=== PATIENT | female | born 1930 | race Caucasian/White ===

== ENCOUNTER 2017-01-22 16:37 | Emergency (ER) | payer MEDICARE ==
[2017-01-22] MEDS ORDERED: Sodium Chloride 0.9% 1,000 ML IV STA (16:51)
[2017-01-22] MEDS ORDERED: Sodium Chloride 0.9% 10 ML Syringe FLUSH PRN (16:51)
--- NOTE | 2017-01-22 18:01 | EDM.PDOC ---
ED HPI GENERAL MEDICAL PROBLEM - General Chief Complaint: Cardiovascular Problem Stated Complaint: [facility] Time Seen by Provider: 01/22/17 16:46 Source of Information: Reports: EMS, [facility] Records History Limitations: Reports: Altered Mental Status - History of Present Illness INITIAL COMMENTS - FREE TEXT/NARRATIVE: The patient presents from [facility] because of high blood sugar, low blood pressure and decreased responsiveness. The patient has dementia. She is normally alert and confused and will talk. She has not talked today and she is not responding like normal. She had no temp today. She has not been coughing. Her intake is down today. She did not fall. Onset: Gradual Duration: Hour(s): (Today) Severity: Moderate Improves with: Reports: None Worsens with: Reports: None Context: Reports: Activity (Bed rest) Associated Symptoms: Denies: Cough, Fever/Chills, Nausea/Vomiting - Related Data Allergies Allergy/AdvReac Type Severity Reaction Status Date / Time penicillin G Allergy Unknown Hives Verified 12/24/14 17:22 Home Meds: Home Meds Anastrozole [Arimidex] 1 mg PO DAILY 07/08/13 [History] Insulin Glargine,Hum.Rec.Anlog [Lantus Solostar] 14 units SQ QAM 07/08/13 [ History] Lisinopril [Prinivil] 2.5 mg PO DAILY 07/08/13 [History] Omeprazole [Prilosec] 20 mg PO Q2D 07/08/13 [History] Sertraline HCl [Zoloft] 100 mg PO DAILY 07/08/13 [History] ALPRAZolam [Alprazolam] 0.25 mg PO DAILY 06/03/14 [History] Insulin Aspart [Novolog Flexpen] 4 units SUBCUT BID 06/03/14 [History] metFORMIN [Glucophage] 500 mg PO DAILY 06/03/14 [History] ALPRAZolam [Alprazolam] 0.5 mg PO BEDTIME 12/16/14 [History] Acetaminophen 325 mg PO DAILY 12/16/14 [History] Calcium Carbonate/Vitamin D3 [Calcium 500-Vit D3 200 Tablet] 1 tab PO DAILY [History] Mag Hydrox/Al Hydrox/Simeth [Maalox Maximum Strength Susp] 2 tsp PO Q4H PRN [History] Aspirin [Halfprin] 81 mg PO BRK 01/22/17 [History] Insulin Aspart [Novolog] 6 unit SQ DAILY 01/22/17 [History] Levothyroxine Sodium [Synthroid] 25 mcg PO DAILY 01/22/17 [History] Liraglutide [Victoza] 0.6 mg SUBCUT BEDTIME 01/22/17 [History] metFORMIN [Glucophage] 250 mg PO DAILY 01/22/17 [History] traZODone 25 mg PO BEDTIME 01/22/17 [History] Past Medical History Other HEENT History: Has right hearing aide, glasses, upper dentures. Other Gastrointestinal History: nausea Other Genitourinary History: overactive bladder, frequency in urination - Past Surgical History Other Cardiovascular Surgeries/Procedures: pacemaker Other Oncologic Surgeries/Procedures: left breast mastectomy Social & Family History - Tobacco Use Smoking Status *Q: Never Smoker Second Hand Smoke Exposure: No - Alcohol Use Days Per Week of Alcohol Use: 0 - Recreational Drug Use Recreational Drug Use: No ED ROS GENERAL - Review of Systems Review Of Systems: Unable To Obtain ED EXAM, GENERAL - Physical Exam Exam: See Below Exam Limited By: Altered Mental Status General Appearance: Lethargic Ears: Normal External Exam Nose: Normal Inspection Head: Atraumatic, Normocephalic Neck: Normal Inspection Respiratory/Chest: No Respiratory Distress, Lungs Clear, Normal Breath Sounds Cardiovascular: No Edema, No Murmur, Tachycardia GI/Abdominal: Soft, Non-Tender, No Organomegaly, No Mass Extremities: Normal Inspection EKG INTERPRETATION EKG Date: 01/22/17 Time: 17:56 Rhythm: Other (Paced rythmn) Rate (Beats/Min): 98 Course - Vital Signs Last Recorded V/S: Last Vital Signs Temp 95.5 F 01/22/17 23:25 Pulse 111 H 01/22/17 23:25 Resp 24 H 01/22/17 23:25 BP 50/24 L 01/22/17 23:25 Pulse Ox 82 L 01/22/17 23:25 - Orders/Labs/Meds Labs: Laboratory Tests 01/22/17 01/22/17 01/22/17 Range/Units 18:04 18:25 18:25 WBC 24.01 H (3.98-10.04) K/mm3 RBC 3.46 L (3.98-5.22) M/mm3 Hgb 9.8 L (11.2-15.7) gm/L Hct 30.8 L (34.1-44.9) % MCV 89.0 (79.4-94.8) fl MCH 28.3 (25.6-32.2) pg MCHC 31.8 L (32.2-35.5) g/dl RDW Std Deviation 48.1 H (36.4-46.3) fL Plt Count 363 (182-369) K/mm3 MPV 10.4 (9.4-12.3) fl Neut % (Auto) 85.0 H (34.0-71.1) % Lymph % (Auto) 3.7 L (19.3-51.7) % [place] % (Auto) 6.6 (4.7-12.5) % Eos % (Auto) 0.6 L (0.7-5.8) Baso % (Auto) 0.1 (0.1-1.2) % Neut # (Auto) 20.40 H (1.56-6.13) K/mm3 Lymph # (Auto) 0.88 L (1.18-3.74) K/mm3 [place] # (Auto) 1.59 H (0.24-0.36) K/mm3 Eos # (Auto) 0.15 (0.04-0.36) K/mm3 Baso # (Auto) 0.02 (0.01-0.08) K/mm3 Manual Slide Review Abnormal smear Sodium 157 H (136-145) mEq/L Potassium 4.1 (3.5-5.1) mEq/L Chloride 119 H (98-107) mEq/L Carbon Dioxide 15 L (21-32) mEq/L Anion Gap 27.1 H (5-15) BUN 121 H (7-18) mg/dL Creatinine 3.6 H (0.55-1.02) mg/dL Est Cr Clr Drug Dosing TNP Estimated GFR (MDRD) 12 (>60) mL/min BUN/Creatinine Ratio 33.6 H (14-18) Glucose 114 (83-115) mg/dL POC Glucose 156 H (83-110) mg/dL Lactic Acid (0.4-2.0) mmol/L Calcium 9.9 (8.5-10.1) mg/dL Total Bilirubin 0.4 (0.2-1.0) mg/dL AST 60 H (15-37) U/L ALT 40 (14-59) U/L Alkaline Phosphatase 126 H (46-116) U/L Troponin I 0.063 H* (0.00-0.056) ng/mL Total Protein 7.2 (6.4-8.2) g/dl Albumin 2.8 L (3.4-5.0) g/dl Globulin 4.4 gm/dL Albumin/Globulin Ratio 0.6 L (1-2) Urine Color (Yellow) Urine Appearance (Clear) Urine pH (5.0-8.0) Ur Specific [place] (1.005-1.030) Urine Protein (Negative) Urine Glucose (UA) (Negative) Urine Ketones (Negative) Urine Occult Blood (Negative) Urine Nitrite (Negative) Urine Bilirubin (Negative) Urine Urobilinogen (0.2-1.0) Ur Leukocyte Esterase (Negative) Urine RBC (0-5) /hpf Urine WBC (0-5) /hpf Ur Epithelial Cells (0-5) /hpf Amorphous Sediment (NOT SEEN) /hpf Urine Bacteria (FEW) /hpf Urine Mucus (FEW) /hpf 01/22/17 01/22/17 Range/Units 19:30 20:31 WBC (3.98-10.04) K/mm3 RBC (3.98-5.22) M/mm3 Hgb (11.2-15.7) gm/L Hct (34.1-44.9) % MCV (79.4-94.8) fl MCH (25.6-32.2) pg MCHC (32.2-35.5) g/dl RDW Std Deviation (36.4-46.3) fL Plt Count (182-369) K/mm3 MPV (9.4-12.3) fl Neut % (Auto) (34.0-71.1) % Lymph % (Auto) (19.3-51.7) % [place] % (Auto) (4.7-12.5) % Eos % (Auto) (0.7-5.8) Baso % (Auto) (0.1-1.2) % Neut # (Auto) (1.56-6.13) K/mm3 Lymph # (Auto) (1.18-3.74) K/mm3 [place] # (Auto) (0.24-0.36) K/mm3 Eos # (Auto) (0.04-0.36) K/mm3 Baso # (Auto) (0.01-0.08) K/mm3 Manual Slide Review Sodium (136-145) mEq/L Potassium (3.5-5.1) mEq/L Chloride (98-107) mEq/L Carbon Dioxide (21-32) mEq/L Anion Gap (5-15) BUN (7-18) mg/dL Creatinine (0.55-1.02) mg/dL Est Cr Clr Drug Dosing Estimated GFR (MDRD) (>60) mL/min BUN/Creatinine Ratio (14-18) Glucose (83-115) mg/dL POC Glucose (83-110) mg/dL Lactic Acid 7.6 H (0.4-2.0) mmol/L Calcium (8.5-10.1) mg/dL Total Bilirubin (0.2-1.0) mg/dL AST (15-37) U/L ALT (14-59) U/L Alkaline Phosphatase (46-116) U/L Troponin I (0.00-0.056) ng/mL Total Protein (6.4-8.2) g/dl Albumin (3.4-5.0) g/dl Globulin gm/dL Albumin/Globulin Ratio (1-2) Urine Color Yellow (Yellow) Urine Appearance Clear (Clear) Urine pH 5.0 (5.0-8.0) Ur Specific [place] 1.020 (1.005-1.030) Urine Protein Negative (Negative) Urine Glucose (UA) Negative (Negative) Urine Ketones Trace H (Negative) Urine Occult Blood Negative (Negative) Urine Nitrite Negative (Negative) Urine Bilirubin 1+ H (Negative) Urine Urobilinogen 0.2 (0.2-1.0) Ur Leukocyte Esterase 1+ H (Negative) Urine RBC 0-5 (0-5) /hpf Urine WBC 0-5 (0-5) /hpf Ur Epithelial Cells Not seen (0-5) /hpf Amorphous Sediment Moderate H (NOT SEEN) /hpf Urine Bacteria Many H (FEW) /hpf Urine Mucus Not seen (FEW) /hpf Meds: Medications Discontinued Medications Generic Name Dose Route Start Last Admin Trade Name Freq PRN Reason Stop Dose Admin Hydromorphone HCl 0.25 mg 01/22/17 19:37 01/22/17 19:40 Dilaudid IVPUSH 01/22/17 19:38 0.25 mg ONETIME ONE Administration Sodium Chloride 1,000 mls @ 1,000 mls/hr 01/22/17 16:51 01/22/17 20:22 Normal Saline IV 01/22/17 17:50 Infused .BOLUS STA Infusion Sodium Chloride 500 mls @ 999 mls/hr 01/22/17 18:11 01/22/17 19:46 Normal Saline IV 01/22/17 18:41 Infused ONETIME ONE Infusion Sodium Chloride 500 mls @ 999 mls/hr 01/22/17 19:45 01/22/17 20:29 Normal Saline IV 125 mls/hr .BOLUS JEROME Administration Levofloxacin/Dextrose 750 mg/ 150 mls @ 100 mls/hr 01/22/17 20:04 01/22/17 20 :21 Premix IV 01/22/17 21:33 100 mls/hr ONETIME ONE Administration Metronidazole 500 mg/ Premix 100 mls @ 100 mls/hr 01/22/17 20:03 01/22/17 20: 20 IV 01/22/17 21:02 100 mls/hr ONETIME ONE Administration Metoclopramide HCl 10 mg 01/22/17 19:15 01/22/17 19:21 Reglan IVPUSH 01/22/17 19:16 10 mg ONETIME ONE Administration Morphine Sulfate 4 mg 01/22/17 20:47 01/22/17 20:57 Morphine IVPUSH 01/22/17 20:48 4 mg ONETIME ONE Administration Morphine Sulfate 4 mg 01/22/17 21:29 Morphine IVPUSH Q1H PRN Pain Ondansetron HCl 4 mg 01/22/17 18:42 01/22/17 18:46 Zofran IVPUSH 01/22/17 18:43 4 mg ONETIME ONE Administration Sodium Chloride 10 ml 01/22/17 16:51 01/22/17 17:12 Saline Flush FLUSH 10 ml ASDIRECTED PRN Administration Keep Vein Open - Re-Assessments/Exams Free Text/Narrative Re-Assessment/Exam: 01/22/17 18:08 I ordered an IV NS 500mL bolus, labs, UA, CT of her head, CXR and EKG. Her CT shows no evidence for acute transcortical infarct, acute hemorrhage, or mass effect. 01/22/17 19:41 Her CXR shows no infiltrates but it appears she has dilated bowel. I have ordered a CT of her abdomen with and without contrast. Her WBC was elevated at 24.01. Her Hgb is low at 9.8. Her platelets are normal. Her Na was elevated at 157. Her K was normal at 4.1. Her anion gap was elevated at 27.1. Her creatinine was elevated at 3.6. Her glucose was normal at 114. Her AST was elevated at 60. Her alk phos was elevated at 126. Her troponin was elevated at 0.063. She appears to be septic. I have ordered another fluid bolus to a total of 2Ls. I am waiting on her CT results. She appears to have a bowel obstruction. She has more pain so I ordered dilaudid 0.25mg IV. She vomited after coming back from CT so I ordered reglan 10mg IV. 01/22/17 21:[address] shows extracolonic gas possibly intravascular in location. Distribution suggests the air is related to several loops of small bowel in the left mid abdomen. Bowel ischemia should be considered. Small bowel ileus. Fecal impaction. Bibasilar infiltrates. Age-indeterminate compression fracture deformities of the T9, L3 and L4 vertebral bodies. Small periumbilical hernia. The patient has ischemic bowel. She is also in septic shock with renal failure. Her BP is better after 2L of fluid. I feel she is more complex a patient then what we can handle here. I talked with our hospitalist and she agreed. I talked with Kiera the patient's granddaughter and power of contracts attorney and she requested [facility]. I called [facility] in [place] and talked with Dr Fuentes the general surgeon bat person and he said the patient has a very low survival rate of 30 to 40% in optimal conditions and she is in renal failure and that makes it worse. She will without the surgery. He will not operate on her if she is a DNR. He wanted me to talk with the family. I talked with Kiera and she contacted Junior her son and they both agreed to make her comfort care only and not have the surgery. I have stopped the fluids and antibiotics. I gave her morphine for the pain and she is resting comfortably. We have a shortage of beds and I will keep her here in the hospital. 01/24/17 06:41 The patient at 0000 on 01/23/2017. Departure - Departure Time of Disposition: 00:00 Disposition: 20 Preliminary Cause of *Q: Sepsis & Multi System Organ Failure Condition: Critical Clinical Impression: Septic shock, Ischemic bowel disease, Non-STEMI (non-ST elevated myocardial infarction) Renal failure Qualifiers: Renal failure chronicity: acute Acute renal failure type: unspecified Qualified Code(s): N17.9 - Acute kidney failure, unspecified Referrals: PCP,None [Primary Care Provider] - Forms: ED Department Discharge
[2017-01-22] MEDS ORDERED: Sodium Chloride 0.9% 500 ML IV ONE (18:11)
[2017-01-22] MEDS ORDERED: Ondansetron 4 MG/2 ML SDV IVPUSH ONE (18:42)
[2017-01-22] MEDS ORDERED: Metoclopramide 10 MG/2 ML SDV IVPUSH ONE (19:15)
[2017-01-22] MEDS ORDERED: HYDROmorphone 0.5 MG/0.5 ML Syringe IVPUSH ONE (19:37)
[2017-01-22] MEDS ORDERED: Sodium Chloride 0.9% 500 ML IV SCH (19:45)
[2017-01-22] MEDS ORDERED: metroNIDAZOLE/Normal Saline 500 MG in Premix Bag 1 BAG IV ONE (20:03)
[2017-01-22] MEDS ORDERED: Levofloxacin/Dextrose 5%-Water 750 MG in Premix Bag 1 BAG IV ONE (20:04)
[2017-01-22] MEDS ORDERED: Morphine 4 MG/ML Syringe IVPUSH ONE (20:47)
[2017-01-22] MEDS ORDERED: Morphine 4 MG/ML Syringe IVPUSH PRN (21:29)
[2017-01-22 23:26] VITALS: BP 50/24
--- NOTE | 2017-01-27 11:27 | CT ---
Head CT Technique: Multiple axial sections through the brain were obtained. Intravenous contrast was not utilized. Comparison: Prior head CT exam of 12/16/14. Findings: Ventricles along with basal cisterns and sulci over the convexities are moderately enlarged. Minimal diminished density noted within the periventricular white matter compatible with small vessel ischemic demyelination change. Minimal basal ganglia calcification is noted. No other abnormal parenchymal densities are seen. Atherosclerotic calcifications seen within the carotid siphon and within the vertebral vessels. Bone window settings were reviewed which show no acute calvarial abnormality. Visualized sinuses are clear. Impression: 1. Senescent change as described above. Nothing acute is appreciated on noncontrast head CT exam. Diagnostic code #2 I agree with preliminary report issued by [facility] ([facility] report finalized on 01/22/17, 6:48 PM Central Time)
--- NOTE | 2017-01-27 11:27 | CR ---
Chest: Portable view of the chest was obtained. Comparison: Prior chest CT of 09/25/15. Heart size and mediastinum are within normal limits for portable technique. Portion of the left lung base not seen due to overlapping of pacemaker. Lungs otherwise are clear. Bony structures are osteopenic. Impression: 1. Portion of the left base not seen due to overlapping pacemaker. 2. Nothing acute is definitely seen on portable chest x-ray. Diagnostic code #2
--- NOTE | 2017-01-27 12:11 | CT ---
CT abdomen and pelvis Technique: Multiple axial sections were obtained from above the dome of the diaphragm inferiorly through the pubic symphysis. Intravenous and oral contrast not utilized which diminishes details of the exam. Comparison: Prior CT abdomen and pelvis exam of 12/16/14. Findings: Patchy increased density within both lung bases, worse on the left side. Uncertain if findings represent treatment of previous spiculated mass within the left lung base or represents superimposed pneumonia. Coronary artery calcification is seen. Mitral annulus calcification also noted. Liver shows no focal abnormality. Spleen appears within normal limits. Kidneys show no hydronephrosis. Adrenal glands show no nodule. There is questionable air within the superior mesenteric artery. There is some air next to small bowel loops within the left abdomen which appears to be extraluminal air. Incidental periumbilical hernia is noted. Aorta shows diffuse atherosclerotic change which includes the branch vessels. No aneurysm is seen. No retroperitoneal adenopathy or other mesenteric abnormalities are seen. Rectum is dilated with stool as well as increased stool within the sigmoid colon. Scattered diverticuli seen within the descending and sigmoid colon. No free fluid is seen. Bone window settings show compression deformities T9 as well as L3 and L4. These are all an interval change from previous CT exam. T9 compression deformity is similar to prior chest CT from 2016. Impression: 1. Extraluminal gas around several small bowel loops within the left abdomen. Small amount of vascular air suggested. Findings raise the possibility of bowel ischemia. 2. Diffuse vascular calcification within the aorta and branch vessels. 3. Mild fecal impaction. 4. Other incidental findings as noted above. Diagnostic code #5 I agree with preliminary report issued by [facility] ([facility] report finalized on 01/22/17, 8:59 PM Central Time)
== END 2017-01-23 01:10 | disposition expired ==
LOC: JD.ED 16:37
DX: A41.9 Sepsis, unspecified organism (principal); N17.9 Acute kidney failure, unspecified; R65.21 Severe sepsis with septic shock; I21.4 Non-ST elevation (NSTEMI) myocardial infarction; K55.9 Vascular disorder of intestine, unspecified; Z79.4 Long term (current) use of insulin; Z79.82 Long term (current) use of aspirin; Z79.899 Other long term (current) drug therapy; Z88.0 Allergy status to penicillin
CPT/HCPCS: 36415; 51702; 70450; 71010; 74176; 80053; 81001; 82962; 83605; 84484; 85025; 87040; 93005; 96361; 96365; 96368; 96375; 99285; J1170; J1956; J2270; J2405; J2765; J7040; J7050